=== PATIENT | female | born 1950 | race Caucasian/White ===

== ENCOUNTER 2017-03-29 18:12 | Emergency (ER) | payer MEDICARE, OTHER ==
[~2017-03-29 18:12] MED LIST: ASPI81TA82 PO; BIOT5000 PO; CALCCHW9 PO; CENTCHW3 PO; FLAX10006 PO; MAGN250T3 PO; MISCTAB12 PO; OMEG5CAP PO; VITA500S3 PO; VITATAB25 PO
[2017-03-29 18:13] VITALS: BP 158/84; PULSE 74; RESP 14; TEMP 98.2; O2SAT 100
--- NOTE | 2017-03-29 19:18 | RADRPT ---
EXAM DATE/TIME: 03/29/2017 18:45 [facility] COMPARISON: No previous studies available for comparison. INDICATIONS : Left foot pain, no known trauma. MEDICAL HISTORY : None. SURGICAL HISTORY : None. ENCOUNTER: Initial ACUITY: 1 week PAIN SCORE: 8/10 LOCATION: Left foot FINDINGS: Three view examination of the left foot demonstrates no soft tissue swelling, dislocation, or fractur e. The tarsal bones appear intact. The interphalangeal and metatarsophalangeal joints are intact. The calcaneus is intact. Bony mineralization is normal. CONCLUSION: Normal examination for a patient of this age. Aguilar Renner MD on March 29, 2017 at 19:15 Board Certified Radiologist. This report was verified electronically.
--- NOTE | 2017-03-29 19:20 | PD ---
HPI Chief Complaint: Pain: Acute or Chronic Time Seen by Provider: 19:15 Travel History International Travel<30 days: No Contact w/Intl Traveler<30days: No Traveled to known affect area: No History of Present Illness HPI 66-year-old female that presents to the ED for evaluation of left foot pain. Per patient she's had this for about a week now. Per patient she relates that she did something to it when she was doing her yard. Per patient she was wearing sandals and she had pain to the dorsal aspect of the foot since but is progressively getting worse. Which is what concerned her. She denies any prior injuries. She states that the pain is more with weightbearing. Otherwise she has no pain. Per patient the pain is 5 out of 10. Gets worse with weightbearing. No numbness, tilling, weakness. Patient's is having some minor swelling compared to the right. No discoloration of the skin. No allergies to medication. PFSH Past Medical History Immunizations Current: No Menopausal: Yes Past Surgical History Other Surgery: Yes (PARATHYROIDS REMOVED 2000) Social History Alcohol Use: Yes (WINE QOD) Tobacco Use: No Substance Use: No Allergies-Medications (Allergen,Severity, Reaction): Coded Allergies: No Known Allergies (Verified , 03/29/17) Reported Meds & Prescriptions Reported Meds & Active Scripts Active Review of Systems Except as stated in HPI: all other systems reviewed are Neg Physical Exam Narrative GENERAL: SKIN: Warm and dry. HEAD: Atraumatic. Normocephalic. EYES: Pupils equal and round. No scleral icterus. No injection or drainage. ENT: No nasal bleeding or discharge. Mucous membranes pink and moist. Tongue is midline. No uvula deviation. NECK: Trachea midline. No JVD. CARDIOVASCULAR: Regular rate and rhythm. RESPIRATORY: No accessory muscle use. Clear to auscultation. Breath sounds equal bilaterally. GASTROINTESTINAL: Abdomen soft, non-tender, nondistended. Hepatic and splenic margins not palpable. MUSCULOSKELETAL: Extremities without clubbing, cyanosis, or edema. No obvious deformities. Full range of motion of the upper and lower extremities bilaterally. 2+ pulses bilaterally. Patient does have reproducible pain on the dorsal aspect of the second and third metacarpals. On the distal aspect. No obvious sign of deformity other than some soft tissue swelling. Pain with weightbearing but not with touch. Able to move the toes fully. Good capillary refill. Sensation intact bilaterally. NEUROLOGICAL: Awake and alert. No obvious cranial nerve deficits. Motor grossly within normal limits. Five out of 5 muscle strength in the arms and legs. Normal speech. PSYCHIATRIC: Appropriate mood and affect; insight and judgment normal. Data Data Last Documented VS Vital Signs Date Time Temp Pulse Resp B/P Pulse Ox O2 Delivery O2 Flow Rate FiO2 03/29/17 18:41 72 18 03/29/17 18:13 98.2 158/84 100 Orders Foot, Complete ([id number]) (03/29/17 ) [facility] Medical Decision Making Medical Screen Exam Complete: Yes Emergency Medical Condition: Yes Medical Record Reviewed: Yes Interpretation(s) X-ray of the left foot showed no sign of acute bony injury Differential Diagnosis Fracture versus stress fracture versus bony injury versus bruise versus contusion Narrative Course 66-year-old female that presents to the ED for evaluation of injury to the left foot. Patient was properly examined and was found to have signs and symptoms consistent what appears to be musculoskeletal pain. X-rays were done. X-rays were negative for acute injury. Patient was reassured. At this time this appears to be possible tendinitis. Recommendation is for anti-inflammatory and comfortable shoes. Ice or warm compresses. Close follow-up with PCP. See ED for any worsening symptoms. Diagnosis Primary Impression: Tendinitis Additional Impression: Foot pain, left Patient Instructions: General Instructions Additional Instructions: Motrin or Tylenol for pain. Follow up with PCP. See ED for any worsening symptoms. Ice or warm compresses. Comfortable shoes. Med/Other Pt SpecificInfo: Prescription(s) given Disposition: 01 DISCHARGE HOME Condition: Stable Agusto Lau Mar 29, 2017 19:20
== END 2017-03-29 19:41 | disposition home or self-care (01) ==
LOC: NEPC 18:12
DX: M77.52 Other enthesopathy of left foot and ankle (principal)
CPT/HCPCS: 73630; 99283

== ENCOUNTER → 2017-08-21 | Outpatient (CLI) | payer MEDICARE, OTHER ==
[~2017-08-21] MED LIST changes: +ASPI-516 CHEW; -ASPI81TA82 PO; -BIOT5000 PO; -CALCCHW9 PO; -CENTCHW3 PO; +Centrum Silver; -FLAX10006 PO; +FLAXSEED OIL; -MAGN250T3 PO; -MISCTAB12 PO; +Magnesium; -OMEG5CAP PO; +VIT B SL; -VITA500S3 PO; -VITATAB25 PO; +Vitamin D3; +[UNRECOGNIZED DRUG - OTHER]; +biotin; +calcium; +fish oil
[2017-08-21 13:09] LABS: ALBUMIN 3.9 GM/DL (3.4-5.0); ALT (GPT) 24 U/L (10-53); AST (GOT) 18 U/L (15-37); BICARBONATE 29.4 MEQ/L (21.0-32.0); BLOOD UREA NITROGEN 18 MG/DL (7-18); CALCIUM 8.9 MG/DL (8.5-10.1); CHLORIDE 103 MEQ/L (98-107); CHOLESTEROL 249 MG/DL (120-200); CREATININE 0.78 MG/DL (0.50-1.00); GLOMERULAR FILTRATION RATE 74 ML/MIN (>89); GLUCOSE,FASTING 93 MG/DL (74-99); SODIUM (NA) 139 MEQ/L (136-145); TRIGLYCERIDES 220 MG/DL (42-150)
[2017-08-21 13:19] LABS: ALKALINE PHOSPHATASE 57 U/L (45-117); CHOLESTEROL/ HDL RATIO 4.95 RATIO; HDL CHOLESTEROL 50.3 MG/DL (40.0-60.0); LDL CHOLESTEROL 155 MG/DL (0-99); TOTAL BILIRUBIN ADULT 0.7 MG/DL (0.2-1.0); TOTAL PROTEIN 7.1 GM/DL (6.4-8.2)
== END ==
LOC: PLAB 10:30
PROVIDERS: ATTEND Family Medicine
DX: E78.00 Pure hypercholesterolemia, unspecified (principal); Z86.39 Personal history of other endocrine, nutritional and metabolic disease
CPT/HCPCS: 36415; 80053; 80061; 84443